=== PATIENT | female | born 1945 | race Two or more races ===

== ENCOUNTER 2019-10-02 16:04 | Emergency (ER) | payer OTHER ==
[~2019-10-02] VITALS: Ht 167.6 cm; Wt 86.2 kg
[~2019-10-02 16:04] MED LIST: BUDEPRION SR150 MG; CLONAZEPAM0.5 MG/TAB; DURICEF PO; ESKALITH300 MG; LEVAQUIN500 MG; TRAMADOL HCL-AP1 TAB PO; VITAMIN D5000 UNIT
[2019-10-02] MEDS ORDERED: SEROQUEL25 MG (16:25)
== END 2019-10-02 22:38 | disposition home or self-care (01) ==
LOC: ER 16:04
DX: L03.211 Cellulitis of face (principal); B37.0 Candidal stomatitis

== ENCOUNTER 2019-10-15 10:35 | Inpatient (IN) | payer OTHER ==
[~2019-10-15] VITALS: Ht 165.1 cm; Wt 81.6 kg
[~2019-10-15 10:35] MED LIST changes: +SEROQUEL25 MG
[2019-10-28] MEDS ORDERED: TENORMIN25 MG PO (22:14)
== END 2019-10-23 11:53 | disposition home or self-care (01) | DRG 602 ==
LOC: ER 10:35 → SURG 16:37
PROVIDERS: ADMIT Internal Medicine Cardiovascular Disease; ATTEND Internal Medicine Cardiovascular Disease
PROC: 3E0F7GC Introduction of Other Therapeutic Substance into Respiratory Tract, Via Natural or Artificial Opening (ICD-10-PCS; 2019-10-15)
PROC: BW28ZZZ Computerized Tomography (CT Scan) of Head (ICD-10-PCS; 2019-10-15)
PROC: B030YZZ Magnetic Resonance Imaging (MRI) of Brain using Other Contrast (ICD-10-PCS; 2019-10-15)
PROC: 8E0ZXY6 Isolation (ICD-10-PCS; principal; 2019-10-16)
DX: L03.211 Cellulitis of face (principal); G92 Toxic encephalopathy; L97.929 Non-pressure chronic ulcer of unspecified part of left lower leg with unspecified severity; B37.0 Candidal stomatitis; B02.8 Zoster with other complications; I67.82 Cerebral ischemia; L13.0 Dermatitis herpetiformis; E11.622 Type 2 diabetes mellitus with other skin ulcer; I10 Essential (primary) hypertension; L27.0 Generalized skin eruption due to drugs and medicaments taken internally; T36.0X5A Adverse effect of penicillins, initial encounter; Y92.238 Other place in hospital as the place of occurrence of the external cause; F01.50 Vascular dementia, unspecified severity, without behavioral disturbance, psychotic disturbance, mood disturbance, and anxiety; G51.0 Bell's palsy; F31.9 Bipolar disorder, unspecified; E11.51 Type 2 diabetes mellitus with diabetic peripheral angiopathy without gangrene; Z79.4 Long term (current) use of insulin; T42.4X5A Adverse effect of benzodiazepines, initial encounter
CPT/HCPCS: 70552

== ENCOUNTER → 2019-10-28 | Emergency (ER) | payer OTHER ==
[~2019-10-28] VITALS: Ht 162.6 cm; Wt 81.6 kg
[~2019-10-28] MED LIST changes: +TENORMIN25 MG PO
== END | disposition home or self-care (01) ==
LOC: ER 21:49
DX: R53.1 Weakness (principal)

== ENCOUNTER 2020-01-22 17:03 | Emergency (ER) | payer OTHER ==
[~2020-01-22] VITALS: Ht 160 cm; Wt 77.1 kg
[2020-01-22] MEDS ORDERED: ATIVAN0.5 M1 (17:25)
[2020-01-22] MEDS ORDERED: LEXAPRO5 MG (17:25)
[2020-01-22] MEDS ORDERED: RISPERIDONE O0.25 MG (17:42)
[2020-01-23] MEDS ORDERED: ZOFRAN4 MG PO (08:49)
[2020-01-23] MEDS ORDERED: PEPCID40 MG PO (08:49)
== END 2020-01-23 14:34 | disposition home or self-care (01) ==
LOC: ER 17:03
DX: K29.60 Other gastritis without bleeding (principal); R10.84 Generalized abdominal pain; R40.0 Somnolence; T43.595A Adverse effect of other antipsychotics and neuroleptics, initial encounter; Z71.89 Other specified counseling; Y92.89 Other specified places as the place of occurrence of the external cause

== ENCOUNTER 2020-10-22 10:25 | Outpatient (CLI) | payer OTHER ==
[~2020-10-22 10:25] MED LIST changes: +ATIVAN0.5 M1; +LEXAPRO5 MG; +PEPCID40 MG PO; +RISPERIDONE O0.25 MG; +ZOFRAN4 MG PO
== END 2020-10-22 10:27 | disposition home or self-care (01) ==
LOC: MAMO-SONO 10:25
PROVIDERS: ATTEND Internal Medicine Cardiovascular Disease
DX: N63.11 Unspecified lump in the right breast, upper outer quadrant (principal); Z12.31 Encounter for screening mammogram for malignant neoplasm of breast

== ENCOUNTER 2020-10-22 11:22 | Outpatient (CLI) | payer OTHER | END 2020-10-22 11:26 | disposition home or self-care (01) | LOC: NUCLEAR 11:22 | PROVIDERS: ATTEND Internal Medicine Cardiovascular Disease | DX: M81.0 Age-related osteoporosis without current pathological fracture (principal); E55.9 Vitamin D deficiency, unspecified ==